=== PATIENT | female | born 1975 | race Asian ===

== ENCOUNTER 2018-01-26 12:18 | Outpatient (CLI) | payer BC ==
[2018-01-26 13:03] LABS: BASOPHILS # (AUTO) 0.1 10^3/uL (0.0-0.1); BASOPHILS % (AUTO) 0.4 %; EOSINOPHILS % (AUTO) 0.1 %; HGB - HEMOGLOBIN 14.8 g/dL (12.0-16.0); LYMPHOCYTES # (AUTO) 1.1 10^3/uL (1.5-3.5); LYMPHOCYTES % (AUTO) 7.2 %; MEAN CORPUSCULAR HGB CONC 35.2 g/dL (32.0-36.0); MEAN CORPUSCULAR VOLUME 85.1 fL (81.0-99.0); MEAN PLATELET VOLUME 7.1 fL (7.9-10.8); MONOCYTES # (AUTO) 1.4 10^3/uL (0.0-1.0); MONOCYTES % (AUTO) 9.6 %; NEUTROPHILS # (AUTO) 12.2 10^3/uL (1.5-6.6); NEUTROPHILS % (AUTO) 82.7 %; PLT - PLATELET COUNT 179 10^3/uL (130-450); RED BLOOD COUNT 4.94 10^6/uL (4.20-5.40); RED CELL DISTRIBUTION WIDTH 12.2 % (12.0-15.0); WHITE BLOOD COUNT 14.8 x10^3/uL (4.8-10.8)
[2018-01-26 13:45] LABS: CALCIUM 8.9 mg/dL (8.5-10.3); CREATININE 0.8 mg/dL (0.4-1.0)
--- NOTE | 2018-01-26 21:13 | Ultrasound Report ---
Reason: N12,UTI WITH WORSENING PAIN Procedure Date: 01/26/2018 Accession Number: [id number] / [id number] Procedure: US - Retroperitoneal CPT Code: FULL RESULT: EXAM: RENAL ULTRASOUND. EXAM DATE: 01/26/2018 07:12 PM. CLINICAL HISTORY: N12, urinary tract infection with worsening pain. COMPARISON: None. TECHNIQUE: Real-time scanning was performed with static images obtained. FINDINGS: Right Kidney: cm. Normal echotexture with no stones, contour-deforming masses, or hydronephrosis. Left Kidney: cm. Normal echotexture with no stones, contour-deforming masses, or hydronephrosis. Bladder: Bilateral jets seen. The prevoid bladder volume was cc. The postvoid bladder volume was cc. Other: There are at least 2 circumscribed hyperechoic hepatic masses larger measuring 3 x 4.1 x 4.1 cm. IMPRESSION: 1. Normal kidneys. 2. Small postvoid bladder residual. 3. Liver masses, the sonographic characteristics of which favor hemangiomas. Comparison with previous cross-sectional imaging studies would be helpful for confirmation. If unavailable then multiphase liver MRI or CT recommended for confirmation. [facility] The call report notification system was initiated by Dr. Gamaliel Prado at 21:08 hrs on 01/26/18. The above findings were discussed with Dr Reynaldo Dr by Dr. Gamaliel Prado at 21:12 hrs on 01/26/18.
== END 2018-01-26 12:19 | disposition home or self-care (01) ==
LOC: LAB 12:18
PROVIDERS: ATTEND Specialist
DX: N12 Tubulo-interstitial nephritis, not specified as acute or chronic (principal); R16.0 Hepatomegaly, not elsewhere classified
CPT/HCPCS: 36415; 76770; 80048; 85025

== ENCOUNTER 2018-02-03 18:52 | Outpatient (CLI) | payer BC ==
[2018-02-03] MEDS ORDERED: IOPAMIDOL-300 100 ML VIAL ONE (18:59)
[2018-02-03] MEDS ORDERED: IOPAMIDOL-300 100 ML VIAL IVP ONE (20:02)
--- NOTE | 2018-02-04 17:33 | CT Report ---
Reason: LIVER MASS Procedure Date: 02/03/2018 Accession Number: [id number] / [id number] Procedure: CT - Abdomen W/ CPT Code: FULL RESULT: EXAM: CT ABDOMEN EXAM DATE: 02/03/2018 08:00 PM. CLINICAL HISTORY: LIVER MASS. COMPARISON: Ultrasound dated 01/26/2018. TECHNIQUE: Routine helical CT imaging was performed through the abdomen including arterial, venous, and delayed phases. IV contrast: 100 ML ISOVUE 300 Enteric contrast: No. Reconstruction: Coronal and sagittal. In accordance with CT protocol optimization, one or more of the following dose reduction techniques were utilized for this exam: automated exposure control, adjustment of mA and/or KV based on patient size, or use of iterative reconstructive technique. FINDINGS: Lung Bases: Unremarkable. Liver: Right lobe masses measuring about 2.4 and 5.0 cm with peripheral enhancement, typical for hemangiomata. Otherwise unremarkable. Gallbladder/Bile Ducts: Unremarkable. Spleen: Normal. Small accessory spleen. Pancreas: Normal. Adrenal Glands: Normal. Kidneys: Multiple bilateral hypoattenuation lesions, right more than left with loss of corticomedullary distinction and localized edematous appearance. Minimal perinephric fat stranding on the right. No definite stone. No hydronephrosis. Peritoneal Cavity/Bowel: Normal. No free fluid, free air or adenopathy. No masses or acute inflammatory process. The appendix is well visualized and normal. Vasculature: No aneurysms or other significant abnormality. Bones: No significant abnormality. Other: None. IMPRESSION: 1. Previously described liver lesions are hemangiomata. 2. Multiple bilateral renal lesions typical for pyelonephritis, right worse than left. No hydronephrosis. [facility]
== END 2018-02-03 18:53 | disposition home or self-care (01) ==
LOC: DI 18:52
PROVIDERS: ATTEND Specialist
DX: D18.03 Hemangioma of intra-abdominal structures (principal)
CPT/HCPCS: 74160; Q9967

== ENCOUNTER 2020-04-08 15:44 | Outpatient (CLI) | payer BC | END 2020-04-08 15:45 | disposition home or self-care (01) | LOC: COV 15:44 | PROVIDERS: ATTEND Family Medicine | DX: U07.1 COVID-19 (principal) ==